=== PATIENT | male | born 1960 | race Caucasian/White ===

== ENCOUNTER 2023-02-19 00:14 | Day surgery (SDC) | payer MEDICARE, SELFPAY ==
[2023-02-06 14:32] VITALS: BMI 24.7
[2023-02-19 11:08] VITALS: BP 148/83; PULSE 79; RESP 20; TEMP 36.7; O2SAT 97
[2023-02-19] MEDS: LACTATED RINGERS 1,000 ML 150 ML IV CONT (11:17)
--- NOTE | 2023-02-19 11:43 | PM.HPGS ---
History of Present Illness History of Present Illness Consent: Risks, benefits, and alternatives have been discussed and questions answered. Patient agrees to proceed with procedure. Chief complaint: neoplasm screening Narrative: Luis Ramos is a 62 year old male Presents for screening colonoscopy. Patient's current weight appetite and bowel movements are normal. Patient denies abdominal pain. He has had no bleeding. Family history is significant his brother was found to have colon polyps. Review of Systems Review of Systems: Review of systems noncontributory. [facility] Family History Family History (Updated 01/09/23 @ 08:54 by Shmuel Gonzalez [facility]) Father Malignant neoplasm of prostate Mother Breast cancer Social History Social History (Updated 01/09/23 @ 08:53 by Shmuel Gonzalez [facility]) Smoking packs per day: 1 Smoking cigarettes per day: 20.0 Years smoked: 40 Smoking pack-years: 40.00 Smoking status: Current every day smoker Tobacco type: cigarettes Alcohol intake: never Substance use: never Substance use type: does not use Living arrangements: with family Spiritual care concerns: No Meds Home Medications and Allergies Home Medications Medication Instructions Recorded Confirmed Type sodium,potassium,mag sulfates 17.5 See Rx Instructions PO .COMPLEX 02/04/23 Rx gram-3.13 gram-1.6 gram oral soln #354 mL (Suprep Bowel Prep Kit) fluorouracil 5 % topical cream 1 applic topical DAILY 02/06/23 02/06/23 History Allergies Allergy/AdvReac Type Severity Reaction Status Date / Time Penicillins Allergy Unknown Verified 02/19/23 11:07 Vital Signs Vital Signs - 24 hr 02/19/23 11:08 Temperature 98.1 F Pulse Rate 79 Respiratory Rate 20 Blood Pressure 148/83 H Pulse Oximetry 97 Oxygen Delivery Room Air Exam Narrative: Physical exam reveals patient to be alert. Vital signs stable. HEENT exam is unremarkable. Patient is anicteric. Lungs are clear to auscultation and percussion. Heart is without murmur or extra sounds. Abdomen bowel sounds present soft nontender with no organomegaly. Digital external rectal exam normal. Assessment and Plan Assessment and plan (1) Encounter for screening colonoscopy: Code(s): Z12.11 - Encounter for screening for malignant neoplasm of colon Status: Acute Assessment and Plan: Patient presents today for screening colonoscopy. Family history significant his brother has had colon polyps. Further recommendations may be given after endoscopy.
--- NOTE | 2023-02-19 12:27 | P.PNAN_ITS ---
Anes - Initial Pre Proc Eval Procedure: Operation Date: 02/19/23 12:30 Proposed Procedures p Screening Colonoscopy - Mk Grajeda MD Date/Time: 02/19/23 12:27 Surgeon: Mk Grajeda MD Pre Op Diagnosis: neoplasm screening Patient Data Age: 62 Gender: M Height: 1.85 m Weight: 83.3 kg Last Vital Signs Temp 98.1 F 02/19/23 11:08 Pulse 79 02/19/23 11:08 Resp 20 02/19/23 11:08 BP 148/83 H 02/19/23 11:08 Pulse Ox 97 02/19/23 11:08 O2 Del Method Room Air 02/19/23 11:08 Allergies Allergy/AdvReac Type Severity Reaction Status Date / Time Penicillins Allergy Unknown Verified 02/19/23 11:07 Home Medications Medication Instructions Recorded Confirmed Type sodium,potassium,mag sulfates 17.5 See Rx Instructions PO .COMPLEX 02/04/23 Rx gram-3.13 gram-1.6 gram oral soln #354 mL (Suprep Bowel Prep Kit) fluorouracil 5 % topical cream 1 applic topical DAILY 02/06/23 02/06/23 History Patient hx anesthesia problems: none Family hx anesthesia problems: none Results Review: All pre-operative results and documents have been reviewed as part of the pre- operative evaluation. [facility] Family History Family History (Updated 01/09/23 @ 08:54 by Shmuel Gonzalez CMA) Father Malignant neoplasm of prostate Mother Breast cancer Social History Social History (Updated 01/09/23 @ 08:53 by Shmuel Gonzalez CMA) Smoking packs per day: 1 Smoking cigarettes per day: 20.0 Years smoked: 40 Smoking pack-years: 40.00 Smoking status: Current every day smoker Tobacco type: cigarettes Alcohol intake: never Substance use: never Substance use type: does not use Living arrangements: with family Spiritual care concerns: No Anes - Eval Final PreProcedure Day of Procedure 02/19/23 12:27 Patient weight: normal Heart: regular rate and rhythm Lungs: clear to auscultation Airway: Mallampati scale class II Neurological: alert and oriented Last oral intake: >/= 8 hours ASA classification: II Emergent: no Anesthetic plan: proceed Anesthesia type and monitoring: general GIVS and standard monitoring Results Review: All pre-operative results and documents have been reviewed as part of the pre- operative evaluation. Informed Consent: The patient's anesthetic plan and its attendant risks and benefits were discussed with the patient/family/POA. Questions were solicited and answers provided to the satisfaction of the patient/family/POA.
[2023-02-19 12:50] VITALS: BP 127/85; PULSE 68; RESP 21; O2SAT 97
[2023-02-19 12:58] VITALS: BP 124/80; PULSE 71; RESP 21; O2SAT 100
[2023-02-19 13:08] VITALS: BP 116/83; PULSE 66; RESP 22; O2SAT 100
== END 2023-02-19 13:15 | disposition home or self-care (01) ==
PROVIDERS: PCP Family Medicine Adolescent Medicine; Visit Provider Internal Medicine Gastroenterology
PROC: 0DJD8ZZ Inspection of Lower Intestinal Tract, Via Natural or Artificial Opening Endoscopic (ICD-10-PCS; CPT 45378; principal; 2023-02-19 12:30)
DX: Z12.11 Encounter for screening for malignant neoplasm of colon (principal); K57.30 Diverticulosis of large intestine without perforation or abscess without bleeding; Z83.71 Family history of colonic polyps; F17.210 Nicotine dependence, cigarettes, uncomplicated
CPT/HCPCS: G0105; 87081; J2704; J7120

== ENCOUNTER 2024-07-10 09:22 | Outpatient (CLI) | payer MEDICARE, SELFPAY ==
--- NOTE | ~2024-07-10 | XR_ITS ---
XR shoulder LT min 2V Ordering provider: Darron Kilpatrick MD History: . Pain in left shoulder . Comparison: None. FINDINGS: BONES: No acute fracture or dislocation. JOINT SPACES: The acromioclavicular joint is normal. The glenohumeral joint is normal. SOFT TISSUES: Normal. IMPRESSION: No acute osseous abnormality left shoulder. Reviewed, dictated and finalized at location A.
== END 2024-07-10 09:23 | disposition home or self-care (01) ==
PROVIDERS: PCP Family Medicine Adolescent Medicine; Visit Provider Family Medicine Adolescent Medicine
DX: M25.512 Pain in left shoulder (principal)
CPT/HCPCS: 73030

== ENCOUNTER 2024-07-13 13:49 | Outpatient (CLI) | payer MEDICARE, SELFPAY ==
--- NOTE | ~2024-07-13 | CT_ITS ---
EXAMINATION:CT lung screening DATE: 07/13/2024 14:01 INDICATION: Personal history of nicotine dependence. Current smoker with 50 pack year history. TECHNIQUE: Computed tomography (CT) of the chest was performed without intravenous contrast. Automate d exposure control and iterative reconstruction technique were employed. The dose-length product (DLP ) was 78.07 mGy-cm. COMPARISON: None. FINDINGS: There is mild emphysema. There is mild atelectasis bilaterally. No pleural effusion. The he art size is normal. There are coronary artery calcifications. No pericardial effusion. There is bilat eral gynecomastia. There is mild thoracic spondylosis. There is mild chronic anterior wedging of T11 and T12 vertebral bodies. IMPRESSION: 1. Lung-RADS category 1: Negative. Continue annual screening with noncontrast low-dose chest CT in 12 months. Reviewed, dictated and finalized at location A. IMPRESSION: 1. Lung-RADS category 1: Negative. Continue annual screening with noncontrast l ow-dose chest CT in 12 months.
== END 2024-07-13 13:50 | disposition home or self-care (01) ==
LOC: MICIMG 13:50
PROVIDERS: PCP Family Medicine Adolescent Medicine; Visit Provider Family Medicine Adolescent Medicine
DX: Z12.2 Encounter for screening for malignant neoplasm of respiratory organs (principal); Z87.891 Personal history of nicotine dependence
CPT/HCPCS: 71271

== ENCOUNTER 2024-11-03 11:13 | Outpatient (CLI) | payer MEDICARE, SELFPAY ==
--- NOTE | ~2024-11-03 | XR_ITS ---
XR shoulder LT min 2V Ordering provider: Kayli Jack APRN History: . M25.512 - Pain in left shoulder . Comparison: None. FINDINGS: BONES: No acute fracture or dislocation. JOINT SPACES: The acromioclavicular joint shows mild osteoarthritic changes.. The glenohumeral joint is normal. SOFT TISSUES: Normal. IMPRESSION: No acute osseous abnormality left shoulder. Reviewed, dictated and finalized at location A. ARCH ADMINISTRATOR
== END 2024-11-03 11:14 | disposition home or self-care (01) ==
PROVIDERS: PCP Family Medicine Adolescent Medicine; Visit Provider Nurse Practitioner Family
DX: M25.512 Pain in left shoulder (principal); W19.XXXA Unspecified fall, initial encounter
CPT/HCPCS: 73030

== ENCOUNTER 2024-12-28 14:22 | Outpatient (CLI) | payer MEDICARE, SELFPAY ==
--- NOTE | 2024-12-28 14:30 | ECG_ITS ---
Test Date: 2024-12-28 14:54:39 Measurements Intervals [place] Rate: 76 P: 149 IA: 162 QRS: -22 QRSD: 98 T: 150 QT: 361 QTc: 407 Interpretive Statements ECTOPIC ATRIAL RHYTHM POSSIBLE LEFT ATRIAL ENLARGEMENT [-0.1mV P WAVE IN V1/V2] BORDERLINE LEFT AXIS DEVIATION [QRS AXIS < -20] NONSEPCIFIC ST AND T WAVE ABNORMALITY WARNING: DATA QUALITY MAY AFFECT INTERPRETATION No previous ECG available for comparison Electronically Signed On 12-29-2024 14:29:52 CDT by Klaudia Bradley M.D.
--- OUTSIDE RECORDS SUMMARY | 2024-12-28 16:53 | XMS_ITS | Continuity of Care Document ---
Author Organization [employer] [place] Address [address] [place] [address] [place] [id number] Phone Care Team Providers Care Smoke Room Operator Name Role Phone Charleen Haddad PT Unavailable Unavailabl e Procedures Procedure Date Therapeutic Exercise Therapeutic Activities Neuromuscular Re-Ed Progress Note Therapeutic Exercise Therapeutic Activities Neuromuscular Re-Ed Therapeutic Exercise Therapeutic Activities Neuromuscular Re-Ed Therapeutic Exercise Therapeutic Activities Neuromuscular Re-Ed Therapeutic Exercise Therapeutic Activities Neuromuscular Re-Ed Therapeutic Exercise Therapeutic Activities Neuromuscular Re-Ed Progress Note Therapeutic Exercise Therapeutic Activities Neuromuscular Re-Ed Therapeutic Exercise Therapeutic Activities Neuromuscular Re-Ed Therapeutic Exercise Therapeutic Activities Neuromuscular Re-Ed Therapeutic Exercise Therapeutic Activities Neuromuscular Re-Ed Therapeutic Exercise Therapeutic Activities Neuromuscular Re-Ed Hot or Cold Pack DATA TRANSCRIBER Acute Therapeutic Exercise Therapeutic Activities Neuromuscular Re-Ed PT Re-evaluation Therapeutic Exercise Therapeutic Activities Neuromuscular Re-Ed Therapeutic Exercise Therapeutic Activities Neuromuscular Re-Ed Manual Therapy Therapeutic Exercise Therapeutic Activities Neuromuscular Re-Ed Therapeutic Exercise Therapeutic Activities Neuromuscular Re-Ed Therapeutic Exercise Therapeutic Activities Neuromuscular Re-Ed Manual Therapy Therapeutic Exercise Neuromuscular Re-Ed Manual Therapy Therapeutic Exercise Therapeutic Activities Neuromuscular Re-Ed Manual Therapy Therapeutic Exercise Neuromuscular Re-Ed Manual Therapy Hot or Cold Pack Therapeutic Exercise Therapeutic Activities Neuromuscular Re-Ed Manual Therapy Hot or Cold Pack Electrical Stimulation Therapeutic Exercise Therapeutic Activities Neuromuscular Re-Ed Manual Therapy Hot or Cold Pack Electrical Stimulation Therapeutic Exercise Therapeutic Activities Neuromuscular Re-Ed Manual Therapy Hot or Cold Pack Electrical Stimulation PT Evaluation Moderate Complexity Therapeutic Exercise Neuromuscular Re-Ed Electrical Stimulation Advance Directives Directive Yes / No Effective Date File Name No Information Encounters Encounter Description Practice Location Reason(s) For Visit Diagnoses Date Provider Providers Copied on Encounter [facility] [place] [address], [place], [place], [id number], [place] tel:[phone] [place] Pain in left kneeOther specified disorders of muscleAnesthe eddy of skinUnspecifi ed abnormalities of gait and mobilityMuscl e weakness (generalized) 2201 8 Boo Bernal . Referring Provider: Mk Pimentel, [address], [place], [address]. tel:[phone] [facility] [address], [place], [place], [id number], [place] tel:[phone] [place] Pain in left kneeOther specified disorders of muscleAnesthe eddy of skinUnspecifi ed abnormalities of gait and mobilityMuscl e weakness (generalized) Dec-1 0-201 8 Boo Villaseñor. . Referring Provider: Mk Pimentel, [address], [place], [address]. tel:[phone] [facility], [place], [place], [id number], [place] tel:[phone] [place] Pain in left kneeOther specified disorders of muscleAnesthe eddy of skinUnspecifi ed abnormalities of gait and mobilityMuscl e weakness (generalized) Dec-0 4-201 8 [place]. [address] [facility] [place], [address], [place], [address], [place]. tel:[phone] Referring Provider: Magda English [address], [place], [address]. tel:[phone] [facility], [place], [place], [id number], [place] tel:[phone] [place] Pain in left kneeOther specified disorders of muscleAnesthe eddy of skinUnspecifi ed abnormalities of gait and mobilityMuscl e weakness (generalized) Dec-0 3-201 8 [place] [address]. [address] [facility], [address], [place], [address], [place]. tel:[phone] Referring Provider: Mk Pimentel, [address], [place], [address]. tel:[phone] [facility], [place], [place], [id number], [place] tel:[phone] [place] Pain in left kneeOther specified disorders of muscleAnesthe eddy of skinUnspecifi ed abnormalities of gait and mobilityMuscl e weakness (generalized) 0 8 Mue[place] [address]. [address] [facility], [address], [place], [address], [place]. tel:[phone] Referring Provider: Magda English [address], [place], [address]. tel:[phone] [facility] [address] [place], [place] [address], [place], [place], [id number], [place] tel:[phone] [place] Pain in left kneeOther specified disorders of muscleAnesthe eddy of skinUnspecifi ed abnormalities of gait and mobilityMuscl e weakness (generalized) 8 M[place] [address]. [address] [facility], [address], [place], [address], [place]. tel:[phone] Referring Provider: Magda English [address], [place], [address]. tel:[phone] [facility] [address] [place], [place] [address], [place], [place], [id number], [place] tel:[phone] [place] Pain in left kneeOther specified disorders of muscleAnesthe eddy of skinUnspecifi ed abnormalities of gait and mobilityMuscl e weakness (generalized) 8 M[address] [address]. [address] [facility], [address], [place], [address], [place]. tel:[phone] Referring Provider: Magda English [address], [place], [address]. tel:[phone] [facility] [address] [place], [place] [address], [place], [place], [id number], [place] tel:[phone] [place] Pain in left kneeOther specified disorders of muscleAnesthe eddy of skinUnspecifi ed abnormalities of gait and mobilityMuscl e weakness (generalized) 8 Muehl [address]. [address] [facility], [address], [place], [address], [place]. tel:[phone] Referring Provider: Magda English [address], [place], [address]. tel:[phone] [facility], [place], [place], [address], [place] tel:[phone] [place] Pain in left kneeOther specified disorders of muscleAnesthe eddy of skinUnspecifi ed abnormalities of gait and mobilityMuscl e weakness (generalized) 8 M[place] [address]. [address] [facility], [address], [place], [address], [place]. tel:[phone] Referring Provider: Mk Pimentel, [address], [place], [address]. tel:[phone] [facility], [place], [place], [address], [place] tel:[phone] [place] Pain in left kneeOther specified disorders of muscleAnesthe eddy of skinUnspecifi ed abnormalities of gait and mobilityMuscl e weakness (generalized) 8 M[place] [address]. [address] [facility], [address], [place], [address], [place]. tel:[phone] Referring Provider: Magda English [address], [place], [address]. tel:[phone] [facility], [place], [address], [place] tel:[phone] [place] Pain in left kneeOther specified disorders of muscleAnesthe eddy of skinUnspecifi ed abnormalities of gait and mobilityMuscl e weakness (generalized) 8 Nianthony Diopa. . Referring Provider: Magda English [address], [place], [address]. tel:[phone] [facility], [place], [address], [place] tel:[phone] [place] Pain in left kneeOther specified disorders of muscleAnesthe eddy of skinUnspecifi ed abnormalities of gait and mobilityMuscl e weakness (generalized) 0 8 Muehl [address]. [address] [facility], [address], [place], [address], [place]. tel:[phone] Referring Provider: Magda English [address], [place], [address]. tel:[phone] [facility], [address] [place], [place] [address], [place], [place], [address], [place] tel:[phone] [place] Pain in left kneeOther specified disorders of muscleAnesthe eddy of skinUnspecifi ed abnormalities of gait and mobilityMuscl e weakness (generalized) 5- 8 M[address] [address]. [address] [facility], [address], [place], [address], [place]. tel:[phone] Referring Provider: Magda English [address], [place], [address]. tel:[phone] [facility] [address] [place], [place] [address], [place], [place], [address], [place] tel:[phone] [place] Pain in left kneeOther specified disorders of muscleAnesthe eddy of skinUnspecifi ed abnormalities of gait and mobilityMuscl e weakness (generalized) 0- 8 Latrice Bran. [address] [facility], [address], [place], [address], [place]. tel:[phone] Referring Provider: Magda English [address], [place], [address]. tel:[phone] [facility] [address], [place], [place], [address], [place] tel:[phone] [place] Pain in left kneeOther specified disorders of muscleAnesthe eddy of skinUnspecifi ed abnormalities of gait and mobilityMuscl e weakness (generalized) 8- 8 M[address]hl [address]. [address] [facility], [address], [place], [address], [place]. tel:[phone] Referring Provider: Magda English [address], [place], [address]. tel:[phone] [facility], [place], [place], [address], [place] tel:[phone] [place] Pain in left kneeOther specified disorders of muscleAnesthe eddy of skinUnspecifi ed abnormalities of gait and mobilityMuscl e weakness (generalized) Oct-0 5-201 8 Muehl [address]. [address] [facility], [address], [place], [address], [place]. tel:[phone] Referring Provider: Magda English [address], [place], [address]. tel:[phone] [facility] [address], [place], [place], [address], [place] tel:[phone] [place] Pain in left kneeOther specified disorders of muscleAnesthe eddy of skinUnspecifi ed abnormalities of gait and mobilityMuscl e weakness (generalized) Oct-0 1-201 8 Muehl [address]. [address] [facility], [address], [place], [address], [place]. tel:[phone] Referring Provider: Magda English [address], [place], [address]. tel:[phone] [facility], [place], [place], [address], [place] tel:[phone] [place] Pain in left kneeOther specified disorders of muscleAnesthe eddy of skinUnspecifi ed abnormalities of gait and mobilityMuscl e weakness (generalized) Sep-2 8-201 8 Muehl [address]. [address] [facility], [address], [place], [address], [place]. tel:[phone] Referring Provider: Magda English [address], [place], [address]. tel:[phone] [facility], [place], [place], [address], [place] tel:[phone] [place] Pain in left kneeOther specified disorders of muscleAnesthe eddy of skinUnspecifi ed abnormalities of gait and mobilityMuscl e weakness (generalized) Sep-2 - 8 M[address] [address]. [address] [facility], [address], [place], [address], [place]. tel:[phone] Referring Provider: Magda English [address], [place], [address]. tel:[phone] [address], [place], [place], [address], [place] tel:[phone] [place] Pain in left kneeOther specified disorders of muscleAnesthe eddy of skinUnspecifi ed abnormalities of gait and mobilityMuscl e weakness (generalized) Sep-2 - 8 M[place] [address]. [address] [facility], [address], [place], [place], [facility], [place]. tel:[phone] Referring Provider: Magda English [address], [place], [address]. tel:[phone] [facility] [address] [place], [place] [address], [place], [place], [address], [place] tel:[phone] [place] Pain in left kneeOther specified disorders of muscleAnesthe eddy of skinUnspecifi ed abnormalities of gait and mobilityMuscl e weakness (generalized) Sep-1 - 8 Muehl [address]. [address] [facility], [address], [place], [address], [place]. tel:[phone] Referring Provider: Magda English [address], [place], [address]. tel:[phone] [address], [place], [place], [address], [place] tel:[phone] [place] Pain in left kneeOther specified disorders of muscleAnesthe eddy of skinUnspecifi ed abnormalities of gait and mobilityMuscl e weakness (generalized) Sep-1 - 8 M[place]hl [address]. [address] [facility], [address], [place], [address], [place]. tel:[phone] Referring Provider: Mk Pimentel, [address], [place], [address]. tel:[phone] [address], [place], [place], [address], tel:[phone] [place] Pain in left kneeOther specified disorders of muscleAnesthe eddy of skinUnspecifi ed abnormalities of gait and mobilityMuscl e weakness (generalized) Sep-1 2-201 8 M[address] [address]. [address] [facility], [address], [place], [place], [facility], [place]. tel:[phone] Referring Provider: Mk Pimentel, [address], [place], [address]. tel:[phone], [place], [place], [address], tel:[phone] [place] Pain in left kneeOther specified disorders of muscleAnesthe eddy of skinSan Juan Regional Medical Centeri ed abnormalities of gait and mobilityMuscl e weakness (generalized) Sep-0 7-201 8 [place] [address] [address] [facility], [address], [place], [place], [facility], [place]. tel:[phone] Referring Provider: Magda English [address], [place], [address]. tel:[phone] Family History Family Member Type Diagnosis Age At Onset No Information Payers Payer name Insurance type Covered libertarian ID Authoriza tieunice(s) [employer] EPO WC SP [id number] Social History Type Description Quantity Date Captured Comments Sex Male Smoking Status No Information Chief Complaint And Reason For Visit No Information Reason For Referral Reason For Referral No Information History Of Present Illness Encounter Date Complaint History Of Prese nt Illness No Information Functional Status Date Functional Assessmen t No Information Instructions Date Instruction Additional Infor mation No Information Assessments Type Assessment Date No Information Patient Care Teams Name Effective Dates (start - stop) Status Members No Information
--- OUTSIDE RECORDS SUMMARY | 2024-12-28 16:53 | XMS_ITS | Patient Health Summary ---
Author Organization [facility] Address [address] [place] [address] Care Team Providers Care Weapons Electrical Engineering Officer Name Role Phone Darron Kilpatrick MD Primary Care Provider + Note from [facility],non-owned Affiliates and Associated Physician Practices is amultiple site organization consisting of ambulatory clinics and hospital sitesin [place], [place], [place] and [place]. This disclosure is being madepursuant to the Care Everywhere program and may not contain all information available regarding this patient. Last updated 18.[facility] Social History Tobacco Use Types Packs/Day Years Used Date Smoking Tobacco: Never Assessed Sex and Gender Information Value Date Recorded Sex Assigned at Not on file Gender Identity Not on file Sexual Orientation Not on file Procedures * DERMATOPATHOLOGY(Performed 12/06/2021) Results * DERMATOPATHOLOGY (12/06/2021 12:00 AM COAL AND ASH SUPERVISOR) Case Report Dermatopathology Report Case: [id number] Authorizing Provider: Clay Kim MD Collected: 12/06/2021 12:00 AM Ordering Location: [facility] Received: 12/07/2021 03:03 PM Pathologist: Tessy Ramirez MD Specimens: A) - Skin, right nasal bulb B) - Skin, left medial latter day C) - Skin, left lateral latter day 5:05 PM [employer] SUPERVISOR DERMATOPATHOLOGY LABORATORY Final Diagnosis Specimen A. SKIN, right nasal bulb: BASAL CELL CARCINOMA, INFILTRATIVE PATTERN, ERODED (C44.311) Specimen B. 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 SKIN, left lateral latter day: PIGMENTED SEBORRHEIC KERATOSIS (L82.1) (see microscopic description) 2 5:05 PM [facility] DERMATOPATHOLOGY LABORATORY Clinical History A: R/O BCC. B: R/O ISK vs other. C: R/O SK vs other. 2 5:05 PM [facility] DERMATOPATHOLOGY LABORATORY Gross Description Specimen A: Received is one formalin filled container labeled with the patient's name and designated right nasal bulb. The specimen consists of a shave biopsy measuring [id number]. Jar 0. Specimen B: Received is one formalin filled container labeled with the patient's name and designated left medial latter day. The specimen consists of a shave biopsy measuring [id number]. Jar 0. Specimen C: Received is one formalin filled container labeled with the patient's name and designated left lateral latter day. The specimen consists of a shave biopsy measuring [id number]. Jar 0. 2 5:05 PM [facility] DERMATOPATHOLOGY LABORATORY Microscopic Description Specimen A. SKIN, right nasal bulb: Within the dermis there are nodular aggregates of basaloid cells associated with fibromyxoid stroma and epithelial-stromal clefts. At the advancing margin of the neoplasm, there are smaller angulated nests that infiltrate the dermis. The epidermis is eroded. Specimen B. SKIN, left medial latter day: Sections reveal parakeratosis, acanthosis and keratinocyte dysmaturation which is most prominent in the lower epidermis but focally extends through the entire epidermis. Additional deeper sections were obtained and reviewed. Specimen C. SKIN, left lateral latter day: Sections show an acanthotic lesion composed of relatively uniform keratinocytes. There is hyperkeratosis and pseudo horn cysts. Pigment is present in the keratinocytes composing this tumor. Additional deeper sections were obtained and reviewed. Ki-67 immunohistochemical stain reveals a normal proliferative index in the epidermis. 2 5:05 PM [facility] DERMATOPATHOLOGY LABORATORY Disclaimer An external and internal positive and negative controls are appropriate for the histochemical, immunohistochemical and immunofluorescence stain(s) in this case (if any), except where stated explicitly. The performance characteristics of the stain(s) cited in this report were developed and its performance characteristic determined by the Dermatopathology Laboratory at [facility], directed by Dr. Josephine Brito. These tests need not be, and therefore are not, approved by the [place] Food and Drug Administration. The tests are used for clinical purposes. Billing Codes Specimen Charges Stain Charges 08361 03059 17065 1 1 1 66438 1 2 5:05 PM COAL AND ASH SUPERVISOR DERMATOPATHOLOGY LABORATORY Embedded Images 2 5:05 PM [employer] SUPERVISOR DERMATOPATHOLOGY LABORATORY Pathology/Cytology TISSUE SPECIMEN FROM SKIN / Unknown 12/06/2021 12/07/2021 3:03 PM [employer] SUPERVISOR Miscellaneous samples (specimen) TISSUE SPECIMEN FROM SKIN / Unknown 12/06/2021 12/07/2021 3:03 PM [employer] AND [employer]SH SUPERVISOR Miscellaneous samples (specimen) TISSUE SPECIMEN FROM SKIN / Unknown 12/06/2021 12/07/2021 3:03 PM COAL AND ASH SUPERVISOR Clay Kim MD LAB - PATHOLOGY/CYTO LOGY ORDERABLES DERMATOPATHOLOGY LABORATORY [facility] - Department of Dermatology [facility] Specialized Medicine [address] [place] [address], [address] [phone] Care Teams Weapons Electrical Engineering Officer Relationship Specialty Start Date End Date Darron Kilpatrick MD [address] [place] [id number] PCP - General 02/10/19
--- OUTSIDE RECORDS SUMMARY | 2024-12-28 16:53 | XMS_ITS | Clinical Summary ---
Author Organization [facility] Address [address] [place] [address] Care Team Providers Care Enrollment Clerk Name Role Phone Darron Kilpatrick MD Primary Care Provider + Source Comments [facility],non-owned Affiliates and Associated Physician Practices is amultiple site organization consisting of ambulatory clinics and hospital sitesin [place], [place], [place] and [place]. This disclosure is being madepursuant to the Care Everywhere program and may not contain all information available regarding this patient. Last updated 18.[facility] Social History Tobacco Use Types Packs/Day Years Used Date Smoking Tobacco: Never Assessed Sex and Gender Information Value Date Recorded Sex Assigned at Not on file Gender Identity Not on file Sexual Orientation Not on file Plan of Treatment Health Maintenance Due Date Last Done Comments COLOGUARD (AGES 45-75) - COL ON CA SCREENING 1962 COLON MONITORING 1962 COLONOSCOPY - COLON CA SCREENING 1962 CT COLONOGRAPHY - COLON CA SCREENING 1962 Colorectal Cancer Screening 1962 FIT - COLON CA SCREENING 1962 FLEX SIG - COLON CA SCREENING 1962 LIPID TESTING 1962 HIV SCREENING 1977 HEPATITIS C SCREENING 06/19/1980 DTAP/TDAP/TD VACCINES (1 - Tdap) 1981 PNEUMOCOCCAL VACCINE 50+ (1 of 1 - PCV) 2012 ZOSTER VACCINE (1 of 2) 2012 COVID-19 VACCINE ( - 2023-2 5 season) 2024 INFLUENZA VACCINE (#1) 2024 DEPRESSION SCREENING 10/21/2024 Respiratory Syncytial Virus (RSV) Vaccine Pt: or over 60 yrs (1 - 1-dose 75+ series) 2037 HEPATITIS B VACCINE Aged Out No longe r eligible based on patient's age to complete this topic HIB VACCINE Aged Out No longer eligi ble based on patient's age to complete this topic HPV VACCINE Aged Out No longer eligi ble based on patient's age to complete this topic MENINGOCOCCAL (Group B) VACCINE Aged Out No longer eligible based on patient's age to complete this topic MENINGOCOCCAL VACCINE Aged Out No mariya ana eligible based on patient's age to complete this topic PNEUMOCOCCAL VACCINE Aged Out No long er eligible based on patient's age to complete this topic Care Teams Enrollment Clerk Relationship Specialty Start Date End Date Darron Kilpatrick MD [address] [place] [id number] PCP - General 02/10/19
--- OUTSIDE RECORDS SUMMARY | 2024-12-28 16:53 | XMS_ITS | Encounter Summary ---
Author Organization [facility] Address [address] [facility] [address] [place] [address] Care Team Providers Care Public Utilities Sales Representative Name Role Phone Darron Kilpatrick MD Primary Care Provider + Encounter Details Date Type Department Care Team (Late st Contact Info) Description 12/07/2021 Lab Requisition [facility] D[facility] Lab [address] [facility], [place] [address] [place] [address] Social History Tobacco Use Types Packs/Day Years Used Date Smoking Tobacco: Never Assessed Sex and Gender Information Value Date Recorded Sex Assigned at Not on file Gender Identity Not on file Sexual Orientation Not on file documented as of this encounter Plan of Treatment Not on file documented as of this encounter Procedures Procedure Name Priority Date/Time Associated Diagnosis Comments DERMATOPATHOLOGY Routine 12/06/2021 12:0 0 AM SPRINKLER REPAIR TECHNICIAN documented in this encounter Results * DERMATOPATHOLOGY (12/06/2021 12:00 AM SPRINKLER REPAIR TECHNICIAN) Case Report Dermatopathology Report Case: [id number] Authorizing Provider: Clay Kim MD Collected: 12/06/2021 12:00 AM Ordering Location: [facility] Received: 12/07/2021 03:03 PM Pathologist: Tessy Ramirez MD Specimens: A) - Skin, right nasal bulb B) - Skin, left medial adventism C) - Skin, left lateral adventism 5:05 PM SPRINKLER REPAIR TECHNICIAN DERMATOPATHOLOGY LABORATORY Final Diagnosis Specimen A. SKIN, right nasal bulb: BASAL CELL CARCINOMA, INFILTRATIVE PATTERN, ERODED (C44.311) Specimen B. 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 SKIN, left lateral adventism: PIGMENTED SEBORRHEIC KERATOSIS (L82.1) (see microscopic description) 2 5:05 PM [facility] DERMATOPATHOLOGY LABORATORY Clinical History A: R/O BCC. B: R/O ISK vs other. C: R/O SK vs other. 2 5:05 PM [facility] DERMATOPATHOLOGY LABORATORY Gross Description Specimen A: Received is one formalin filled container labeled with the patient's name and designated right nasal bulb. The specimen consists of a shave biopsy measuring [id number]. Jar 0. Specimen B: Received is one formalin filled container labeled with the patient's name and designated left medial adventism. The specimen consists of a shave biopsy measuring 5w7m2po. Jar 0. Specimen C: Received is one formalin filled container labeled with the patient's name and designated left lateral adventism. The specimen consists of a shave biopsy measuring [id number]. Jar 0. 2 5:05 PM [facility] DERMATOPATHOLOGY LABORATORY Microscopic Description Specimen A. SKIN, right nasal bulb: Within the dermis there are nodular aggregates of basaloid cells associated with fibromyxoid stroma and epithelial-stromal clefts. At the advancing margin of the neoplasm, there are smaller angulated nests that infiltrate the dermis. The epidermis is eroded. Specimen B. SKIN, left medial adventism: Sections reveal parakeratosis, acanthosis and keratinocyte dysmaturation which is most prominent in the lower epidermis but focally extends through the entire epidermis. Additional deeper sections were obtained and reviewed. Specimen C. SKIN, left lateral adventism: Sections show an acanthotic lesion composed of relatively uniform keratinocytes. There is hyperkeratosis and pseudo horn cysts. Pigment is present in the keratinocytes composing this tumor. Additional deeper sections were obtained and reviewed. Ki-67 immunohistochemical stain reveals a normal proliferative index in the epidermis. 2 5:05 PM [facility] DERMATOPATHOLOGY LABORATORY Disclaimer An external and internal positive and negative controls are appropriate for the histochemical, immunohistochemical and immunofluorescence stain(s) in this case (if any), except where stated explicitly. The performance characteristics of the stain(s) cited in this report were developed and its performance characteristic determined by the Dermatopathology Laboratory at [facility], directed by Dr. Josephine Brito. These tests need not be, and therefore are not, approved by the [place] Food and Drug Administration. The tests are used for clinical purposes. Billing Codes Specimen Charges Stain Charges 24889 97079 68964 1 1 1 78099 1 2 5:05 PM SPRINKLER REPAIR TECHNICIAN DERMATOPATHOLOGY LABORATORY Embedded Images 2 5:05 PM SPRINKLER REPAIR TECHNICIAN DERMATOPATHOLOGY LABORATORY Pathology/Cytology TISSUE SPECIMEN FROM SKIN / Unknown 12/06/2021 12/07/2021 3:03 PM SPRINKLER REPAIR TECHNICIAN Miscellaneous samples (specimen) TISSUE SPECIMEN FROM SKIN / Unknown 12/06/2021 12/07/2021 3:03 PM SPRINKLER REPAIR TECHNICIAN Miscellaneous samples (specimen) TISSUE SPECIMEN FROM SKIN / Unknown 12/06/2021 12/07/2021 3:03 PM SPRINKLER REPAIR TECHNICIAN Clay Kim MD LAB - PATHOLOGY/CYTO LOGY ORDERABLES DERMATOPATHOLOGY LABORATORY [facility] - Department of Dermatology [facility] [address] [place] [address], [address] [phone] documented in this encounter Visit Diagnoses Not on filedocumented in this encounter Care Teams Public Utilities Sales Representative Relationship Specialty Start Date End Date Darron Kilpatrick MD [address] [place] [phone] PCP - General 02/10/19 documented as of this encounter
--- OUTSIDE RECORDS SUMMARY | 2024-12-28 16:53 | XMS_ITS | Referral Summary ---
Author Organization [facility] Address [address] [place] [address] Care Team Providers Care Vice President Of Product Marketing Name Role Phone Darron Kilpatrick MD Primary Care Provider + Source Comments [facility],non-[facility] Affiliates and Associated Physician Practices is amultiple site organization consisting of ambulatory clinics and hospital sitesin [place], [place], [place] and [place]. This disclosure is being madepursuant to the Care Everywhere program and may not contain all information available regarding this patient. Last updated 18.[facility] Social History Tobacco Use Types Packs/Day Years Used Date Smoking Tobacco: Never Assessed Sex and Gender Information Value Date Recorded Sex Assigned at Not on file Gender Identity Not on file Sexual Orientation Not on file Plan of Treatment Not on file Care Teams Vice President Of Product Marketing Relationship Specialty Start Date End Date Darron Kilpatrick MD [address] [place] [phone] PCP - General 02/10/19
== END 2024-12-28 14:23 | disposition home or self-care (01) ==
LOC: ANHSURGERY 14:28
PROVIDERS: PCP Family Medicine Adolescent Medicine; Visit Provider Orthopaedic Surgery
DX: Z01.818 Encounter for other preprocedural examination (principal); R94.31 Abnormal electrocardiogram [ECG] [EKG]; F17.210 Nicotine dependence, cigarettes, uncomplicated
CPT/HCPCS: 93005

== ENCOUNTER 2024-12-29 00:12 | Day surgery (SDC) | payer MEDICARE, SELFPAY ==
[2024-12-28 08:12] VITALS: BMI 26.1
--- NOTE | 2024-12-28 08:23 | PC.NURSE ---
Report to the Outpatient Waiting Room, entrance under the green pavilion located off [facility], at time _1130_ on date _[phone]_. Planned Procedure Time: _130pm_.? Time changes happen often and if your time is changed the preop area will call you the afternoon before. - You and your visitor will be asked to self-screen and do not enter if you have any COVID symptoms. Please call surgeon if you need to reschedule. - A mask is optional within the hospital at this time. Patients may have clear liquids (water, carbonated beverages, clear teas, apple juice) until 3 hours prior to surgery with a maximum of 20 ounces. - No food from midnight until time of surgery and no smoking, or chewing tobacco (or any form of nicotine). No chewing gum, candy or mints. Take only the following medications with a SIP of water on the morning of surgery: ___tramadol if needed____ DO NOT STOP ANY OF YOUR OTHER PRESCRIPTION MEDICATIONS PRIOR TO SURGERY EXCEPT THE FOLLOWING Hold all vitamins and supplements for 3 days per anesthesiologist. Medications to discontinue per physician __Ibuprofen Date to take last dose___Stop now.____ Please no make-up, nail icelandic, hairspray, perfume, deodorant, or body powder the day of surgery.? No jewelry (including any body piercings) or valuables the day of surgery, leave them at home.? Please take a shower or bath the night before, or the morning of, surgery with an antibacterial soap.? Wear comfortable, loose fitting clothing.? - Jewelry must be removed prior to entering the operating room.? Rings and piercings that are not removed may be cut off. - The hospital will not accept responsibility for valuables.? - Please leave all valuables, including medications, at home the day of surgery. If you are going home after surgery, a licensed tractor trailer driver must drive you home.? - NO public transportation without another adult if you receive anesthesia. - We recommend that an adult stay with you for 24 hours following discharge. - We also recommend that you do not drive, make important decision, drink alcoholic beverages, or take any drugs that were not prescribed by your health care provider for at least 24 hours after your discharge time. Follow any additional instructions given to you from your surgeon. Telephone instructions given to __Jimmario__and asked if any additional questions and then verbalized understanding. Patient advised to call surgeon office or pre surgery nurse liaison [phone] if any additional questions.
[2024-12-29] VITALS (9 sets, daily range): BP systolic 122–145; BP diastolic 70–98; PULSE 60–74; RESP 12–18; TEMP 36.2–36.9; O2SAT 93–100
--- OUTSIDE RECORDS SUMMARY | 2024-12-29 00:15 | XMS_ITS | Referral Summary ---
Author Organization [facility] Address [address] [place] [address] Care Team Providers Care Slipman Name Role Phone Darron Kilpatrick MD Primary Care Provider + Source Comments [facility],non-[facility] Affiliates and Associated Physician Practices is amultiple site organization consisting of ambulatory clinics and hospital sitesin [place], [place], [place] and [place]. This disclosure is being madepursuant to the Care Everywhere program and may not contain all information available regarding this patient. Last updated 18.[facility] Social History Tobacco Use Types Packs/Day Years Used Date Smoking Tobacco: Never Assessed Sex and Gender Information Value Date Recorded Sex Assigned at Not on file Gender Identity Not on file Sexual Orientation Not on file Plan of Treatment Not on file Care Teams Slipman Relationship Specialty Start Date End Date Darron Kilpatrick MD [address] [place] [phone] PCP - General 02/10/19
--- OUTSIDE RECORDS SUMMARY | 2024-12-29 00:15 | XMS_ITS | Clinical Summary ---
Author Organization [facility] Address [address] [place] [address] Care Team Providers Care Reed Polisher Name Role Phone Darron Kilpatrick MD Primary Care Provider + Source Comments [facility],non-owned Affiliates and Associated Physician Practices is amultiple site organization consisting of ambulatory clinics and hospital sitesin [place], [place], [place] and [place]. This disclosure is being madepursuant to the Care Everywhere program and may not contain all information available regarding this patient. Last updated 18.[facility] [employer] Social History Tobacco Use Types Packs/Day Years [...] age to complete this topic Care Teams Reed Polisher Relationship Specialty Start Date End Date Darron Kilpatrick MD [address] [place] [phone] PCP - General 02/10/19
--- OUTSIDE RECORDS SUMMARY | 2024-12-29 00:15 | XMS_ITS | Patient Health Summary ---
Author Organization [facility] Address [address] [facility] [place] [address] Care Team Providers Care Bottled Beverage Inspector Name Role Phone Darron Kilpatrick MD Primary Care Provider + Note from [facility],non-owned Affiliates and Associated Physician Practices is amultiple site organization consisting of ambulatory clinics and hospital sitesin [place], [place], [place] and [place]. This disclosure is being madepursuant to the Care Everywhere program and may not contain all information available regarding this patient. Last updated 18.[facility] Social History Tobacco Use Types Packs/Day Years Used Date Smoking Tobacco: Never Assessed Sex and Gender Information Value Date Recorded Sex Assigned at Not on file Gender Identity Not on file Sexual Orientation Not on file Procedures * DERMATOPATHOLOGY(Performed 12/06/2021) Results * DERMATOPATHOLOGY (12/06/2021 12:00 AM SANFORIZER) Case Report Dermatopathology Report Case: [id number] Authorizing Provider: Clay Kim MD Collected: 12/06/2021 12:00 AM Ordering Location: [facility] Derm[facility] Lab Received: 12/07/2021 03:03 PM Pathologist: Tessy Ramirez MD Specimens: A) - Skin, right nasal bulb B) - Skin, left medial samaritan C) - Skin, left lateral samaritan 5:05 PM SANFORIZER DERMATOPATHOLOGY LABORATORY Final Diagnosis Specimen A. SKIN, right nasal bulb: BASAL CELL CARCINOMA, INFILTRATIVE PATTERN, ERODED (C44.311) Specimen B. 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 SKIN, left lateral samaritan: PIGMENTED SEBORRHEIC KERATOSIS (L82.1) (see microscopic description) 2 5:05 PM [facility] DERMATOPATHOLOGY LABORATORY Clinical History A: R/O BCC. B: R/O ISK vs other. C: R/O SK vs other. 2 5:05 PM [facility] DERMATOPATHOLOGY LABORATORY Gross Description Specimen A: Received is one formalin filled container labeled with the patient's name and designated right nasal bulb. The specimen consists of a shave biopsy measuring [id number]. Jar 0. Specimen B: Received is one formalin filled container labeled with the patient's name and designated left medial samaritan. The specimen consists of a shave biopsy measuring 1t1x8ce. Jar 0. Specimen C: Received is one formalin filled container labeled with the patient's name and designated left lateral samaritan. The specimen consists of a shave biopsy measuring 3q0m4nl. Jar 0. 2 5:05 PM [facility] DERMATOPATHOLOGY LABORATORY Microscopic Description Specimen A. SKIN, right nasal bulb: Within the dermis there are nodular aggregates of basaloid cells associated with fibromyxoid stroma and epithelial-stromal clefts. At the advancing margin of the neoplasm, there are smaller angulated nests that infiltrate the dermis. The epidermis is eroded. Specimen B. SKIN, left medial samaritan: Sections reveal parakeratosis, acanthosis and keratinocyte dysmaturation which is most prominent in the lower epidermis but focally extends through the entire epidermis. Additional deeper sections were obtained and reviewed. Specimen C. SKIN, left lateral samaritan: Sections show an acanthotic lesion composed of relatively uniform keratinocytes. There is hyperkeratosis and pseudo horn cysts. Pigment is present in the keratinocytes composing this tumor. Additional deeper sections were obtained and reviewed. Ki-67 immunohistochemical stain reveals a normal proliferative index in the epidermis. 2 5:05 PM [facility] DERMATOPATHOLOGY LABORATORY Disclaimer An external and internal positive and negative controls are appropriate for the histochemical, immunohistochemical and immunofluorescence stain(s) in this case (if any), except where stated explicitly. The performance characteristics of the stain(s) cited in this report were developed and its performance characteristic determined by the Dermatopathology Laboratory at [facility], directed by Dr. Josephine Brito. These tests need not be, and therefore are not, approved by the [place] Food and Drug Administration. The tests are used for clinical purposes. Billing Codes Specimen Charges Stain Charges 85620 54308 85163 1 1 1 64846 1 2 5:05 PM SANFORIZER DERMATOPATHOLOGY LABORATORY Embedded Images 2 5:05 PM SANFORIZER DERMATOPATHOLOGY LABORATORY Pathology/Cytology TISSUE SPECIMEN FROM SKIN / Unknown 12/06/2021 12/07/2021 3:03 PM SANFORIZER Miscellaneous samples (specimen) TISSUE SPECIMEN FROM SKIN / Unknown 12/06/2021 12/07/2021 3:03 PM SANFORIZER Miscellaneous samples (specimen) TISSUE SPECIMEN FROM SKIN / Unknown 12/06/2021 12/07/2021 3:03 PM SANFORIZER Clay Kim MD LAB - PATHOLOGY/CYTO LOGY ORDERABLES DERMATOPATHOLOGY LABORATORY [facility] - Department of Dermatology [facility] [address] [place] [address], [address] [phone] Care Teams Bottled Beverage Inspector Relationship Specialty Start Date End Date Darron Kilpatrick MD [address] [place] [phone] PCP - General 02/10/19
--- OUTSIDE RECORDS SUMMARY | 2024-12-29 00:16 | XMS_ITS | Encounter Summary ---
Author Organization [facility] Address [address] [facility] [place] [address] Care Team Providers Care Diamond Grinder Name Role Phone Darron Kilpatrick MD Primary Care Provider + Encounter Details Date Type Department Care Team (Late st Contact Info) Description 12/07/2021 Lab Requisition [facility] DermPath Lab [address] [place] [address] [place] [address] Social History Tobacco Use Types [...] Comments DERMATOPATHOLOGY Routine 12/06/2021 12:0 0 AM [employer]HEAST REGION[employer] SALES MANAGER documented in this encounter Results * DERMATOPATHOLOGY (12/06/2021 12:00 AM SOUTHEAST REGIONAL SALES MANAGER) Case Report Dermatopathology Report Case: [id number] Authorizing Provider: Clay Kim MD Collected: 12/06/2021 12:00 AM Ordering Location: [facility] DermPath Lab Received: 12/07/2021 03:03 PM Pathologist: Tessy Ramirez MD Specimens: A) - Skin, right nasal bulb B) - Skin, left medial sikhism C) - Skin, left lateral sikhism 5:05 PM [employer]HE[employer]IONAL SALES MANAGER DERMATOPATHOLOGY LABORATORY Final Diagnosis Specimen A. SKIN, right nasal bulb: BASAL CELL CARCINOMA, INFILTRATIVE PATTERN, ERODED (C44.311) Specimen B. 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 SKIN, left lateral sikhism: PIGMENTED SEBORRHEIC KERATOSIS (L82.1) (see microscopic description) 2 5:05 PM [facility] DERMATOPATHOLOGY LABORATORY Clinical History A: R/O BCC. B: R/O ISK vs other. C: R/O SK vs other. 2 5:05 PM [facility] DERMATOPATHOLOGY LABORATORY Gross Description Specimen A: Received is one formalin filled container labeled with the patient's name and designated right nasal bulb. The specimen consists of a shave biopsy measuring [id number]. Jar 0. Specimen B: Received is one formalin filled container labeled with the patient's name and designated left medial sikhism. The specimen consists of a shave biopsy measuring 5h3z0ud. Jar 0. Specimen C: Received is one formalin filled container labeled with the patient's name and designated left lateral sikhism. The specimen consists of a shave biopsy measuring 7o6z9em. Jar 0. 2 5:05 PM [facility] DERMATOPATHOLOGY LABORATORY Microscopic Description Specimen A. SKIN, right nasal bulb: Within the dermis there are nodular aggregates of basaloid cells associated with fibromyxoid stroma and epithelial-stromal clefts. At the advancing margin of the neoplasm, there are smaller angulated nests that infiltrate the dermis. The epidermis is eroded. Specimen B. SKIN, left medial sikhism: Sections reveal parakeratosis, acanthosis and keratinocyte dysmaturation which is most prominent in the lower epidermis but focally extends through the entire epidermis. Additional deeper sections were obtained and reviewed. Specimen C. SKIN, left lateral sikhism: Sections show an acanthotic lesion composed of relatively uniform keratinocytes. There is hyperkeratosis and pseudo horn cysts. Pigment is present in the keratinocytes composing this tumor. Additional deeper sections were obtained and reviewed. Ki-67 immunohistochemical stain reveals a normal proliferative index in the epidermis. 2 5:05 PM [facility] DERMATOPATHOLOGY LABORATORY Disclaimer An external and internal positive and negative controls are appropriate for the histochemical, immunohistochemical and immunofluorescence stain(s) in this case (if any), except where stated explicitly. The performance characteristics of the stain(s) cited in this report were developed and its performance characteristic determined by the Dermatopathology Laboratory at [facility], directed by Dr. Josephine Brito. These tests need not be, and therefore are not, approved by the [place] Food and Drug Administration. The tests are used for clinical purposes. Billing Codes Specimen Charges Stain Charges 75593 27408 90562 1 1 1 06857 1 2 5:05 PM S[employer]HE[employer]AL SALES MANAGER DERMATOPATHOLOGY LABORATORY Embedded Images 2 5:05 PM [employer] SALES MANAGER DERMATOPATHOLOGY LABORATORY Pathology/Cytology TISSUE SPECIMEN FROM SKIN / Unknown 12/06/2021 12/07/2021 3:03 PM S[employer]HEAST REGIONAL SALES MANAGER Miscellaneous samples (specimen) TISSUE SPECIMEN FROM SKIN / Unknown 12/06/2021 12/07/2021 3:03 PM SOUTHEAST REGIONAL SALES MANAGER Miscellaneous samples (specimen) TISSUE SPECIMEN FROM SKIN / Unknown 12/06/2021 12/07/2021 3:03 PM SOUTHEAST REGIONAL SALES MANAGER Clay Kim MD LAB - PATHOLOGY/CYTO LOGY ORDERABLES DERMATOPATHOLOGY LABORATORY [facility] - Department of Dermatology [facility] [address] [place] [address], [address] [phone] documented in this encounter Visit Diagnoses Not on filedocumented in this encounter Care Teams Diamond Grinder Relationship Specialty Start Date End Date Darron Kilpatrick MD [address] [place] [phone] PCP - General 02/10/19 documented as of this encounter
--- OUTSIDE RECORDS SUMMARY | 2024-12-29 00:16 | XMS_ITS | Continuity of Care Document ---
Author Organization [facility] Address [address] [place] [address] [place] [id number] Phone Care Team Providers Care Flask Maker Name Role Phone Charleen Haddad PT Unavailable [...] Activities Neuromuscular Re-Ed Hot or Cold Pack CUSTOMER SERVICE SUPERVISOR Acute Therapeutic Exercise Therapeutic Activities Neuromuscular Re-Ed [...] Date Provider Providers Copied on Encounter [facility] [address], [place], [place], [id number], [place] tel:[phone] [place] Pain in left kneeOther specified disorders of muscleAnesthe eddy of skinUnspecifi ed abnormalities of gait and mobilityMuscl e weakness (generalized) 2201 8 Boo Bernal . Referring Provider: Mk Pimentel, [address], [place], [address]. tel:[phone] [facility] [address], [place], [place], [address], [place] tel:[phone] [place] Pain in left kneeOther specified disorders of muscleAnesthe eddy of skinUnspecifi ed abnormalities of gait and mobilityMuscl e weakness (generalized) Dec-1 0-201 8 Boo Villaseñor. . Referring Provider: Mk Pimentel, [address], [place], [address]. tel:[phone] [facility], [place], [place], [id number], [place] tel:[phone] [place] Pain in left kneeOther specified disorders of muscleAnesthe eddy of skinUnspecifi ed abnormalities of gait and mobilityMuscl e weakness (generalized) Dec-0 4-201 8 Muehl Ed. [address] [facility], [address], [place], [address], [place]. tel:[phone] Referring Provider: Magda English [address], [place], [address]. tel:[phone] [facility], [place], [place], [id number], [place] tel:[phone] [place] Pain in left kneeOther specified disorders of muscleAnesthe eddy of skinUnspecifi ed abnormalities of gait and mobilityMuscl e weakness (generalized) Dec-0 3-201 8 Muehl Ed. [address] [facility], [address], [place], [address], [place]. tel:[phone] Referring Provider: Mk Pimentel, [address], [place], [address]. tel:[phone] [facility], [place], [place], [id number], [place] tel:[phone] [place] Pain in left kneeOther specified disorders of muscleAnesthe eddy of skinUnspecifi ed abnormalities of gait and mobilityMuscl e weakness (generalized) 0 8 Muehl Ed. [address] [facility], [address], [place], [address], [place]. tel:[phone] Referring Provider: Magda English [address], [place], [address]. tel:[phone] [facility] [address] [place], [place] [address], [place], [place], [id number], [place] tel:[phone] [place] Pain in left kneeOther specified disorders of muscleAnesthe eddy of skinUnspecifi ed abnormalities of gait and mobilityMuscl e weakness (generalized) 8 Muehl Ed. [address] [facility], [address], [place], [address], [place]. tel:[phone] Referring Provider: Magda English [address], [place], [address]. tel:[phone] [facility] [address] [place], [place] [address], [place], [place], [id number], [place] tel:[phone] [place] Pain in left kneeOther specified disorders of muscleAnesthe eddy of skinUnspecifi ed abnormalities of gait and mobilityMuscl e weakness (generalized) 8 Muehl Ed. [address] [facility], [address], [place], [address], [place]. tel:[phone] Referring Provider: Magda English [address], [place], [address]. tel:[phone] [facility] [address] [place], [place] [address], [place], [place], [id number], [place] tel:[phone] [place] Pain in left kneeOther specified disorders of muscleAnesthe eddy of skinUnspecifi ed abnormalities of gait and mobilityMuscl e weakness (generalized) 8 Muehl Ed. [address] [facility], [address], [place], [address], [place]. tel:[phone] Referring Provider: Magda English [address], [place], [address]. tel:[phone] [facility], [place], [place], [id number], [place] tel:[phone] [place] Pain in left kneeOther specified disorders of muscleAnesthe eddy of skinUnspecifi ed abnormalities of gait and mobilityMuscl e weakness (generalized) 8 Muehl Ed. [address] [facility], [address], [place], [address], [place]. tel:[phone] Referring Provider: Mk Pimentel, [address], [place], [address]. tel:[phone] [facility] [facility], [place], [place], [id number], [place] tel:[phone] [place] Pain in left kneeOther specified disorders of muscleAnesthe eddy of skinUnspecifi ed abnormalities of gait and mobilityMuscl e weakness (generalized) 8 Muehl Ed. [address] [facility], [address], [place], [address], [place]. tel:[phone] Referring Provider: Magda English [address], [place], [address]. tel:[phone] [facility], [place], [place], [id number], [place] tel:[phone] [place] Pain in left kneeOther specified disorders of muscleAnesthe eddy of skinUnspecifi ed abnormalities of gait and mobilityMuscl e weakness (generalized) 8 Nianthony Diopa. . Referring Provider: Magda English [address], [place], [address]. tel:[phone] [facility], [place], [place], [id number], [place] tel:[phone] [place] Pain in left kneeOther specified disorders of muscleAnesthe eddy of skinUnspecifi ed abnormalities of gait and mobilityMuscl e weakness (generalized) 0 8 Muehl Ed. [address] [facility], [address], [place], [address], [place]. tel:[phone] Referring Provider: Magda English [address], [place], [address]. tel:[phone] [facility], [address] [place], [place] [address], [place], [place], [id number], [place] tel:[phone] [place] Pain in left kneeOther specified disorders of muscleAnesthe eddy of skinUnspecifi ed abnormalities of gait and mobilityMuscl e weakness (generalized) 5- 8 Muehl Ed. [address] [facility], [address], [place], [address], [place]. tel:[phone] Referring Provider: Magda English [address], [place], [address]. tel:[phone] [facility] [address] [place], [place] [address], [place], [place], [id number], [place] tel:[phone] [place] Pain in left kneeOther specified disorders of muscleAnesthe eddy of skinUnspecifi ed abnormalities of gait and mobilityMuscl e weakness (generalized) 0- 8 Latrice Bran. [address] [facility], [address], [place], [address], [place]. tel:[phone] Referring Provider: Magda English [address], [place], [address]. tel:[phone] [facility] [address], [place], [place], [id number], [place] tel:[phone] [place] Pain in left kneeOther specified disorders of muscleAnesthe eddy of skinUnspecifi ed abnormalities of gait and mobilityMuscl e weakness (generalized) 8- 8 Muehl Ed. [address] [facility], [address], [place], [address], [place]. tel:[phone] Referring Provider: Magda English [address], [place], [address]. tel:[phone] [facility], [place], [place], [address], [place] tel:[phone] [place] Pain in left kneeOther specified disorders of muscleAnesthe eddy of skinUnspecifi ed abnormalities of gait and mobilityMuscl e weakness (generalized) Oct-0 5-201 8 Muehl Ed. [address] [facility], [address], [place], [address], [place]. tel:[phone] Referring Provider: Magda English [address], [place], [address]. tel:[phone] [facility] [address], [place], [place], [address], [place] tel:[phone] [place] Pain in left kneeOther specified disorders of muscleAnesthe eddy of skinUnspecifi ed abnormalities of gait and mobilityMuscl e weakness (generalized) Oct-0 1-201 8 Muehl Ed. [address] [facility], [address], [place], [address], [place]. tel:[phone] Referring Provider: Magda English [address], [place], [address]. tel:[phone] [facility], [place], [place], [address], [place] tel:[phone] [place] Pain in left kneeOther specified disorders of muscleAnesthe eddy of skinUnspecifi ed abnormalities of gait and mobilityMuscl e weakness (generalized) Sep-2 8-201 8 Muehl Ed. [address] [facility], [address], [place], [address], [place]. tel:[phone] Referring Provider: Magda English [address], [place], [address]. tel:[phone] [facility], [place], [place], [address], [place] tel:[phone] [place] Pain in left kneeOther specified disorders of muscleAnesthe eddy of skinUnspecifi ed abnormalities of gait and mobilityMuscl e weakness (generalized) Sep-2 - 8 Muehl Ed. [address] [facility], [address], [place], [address], [place]. tel:[phone] Referring Provider: Magda English [address], [place], [address]. tel:[phone] [address], [place], [place], [id number], [place] tel:[phone] [place] Pain in left kneeOther specified disorders of muscleAnesthe eddy of skinUnspecifi ed abnormalities of gait and mobilityMuscl e weakness (generalized) Sep-2 - 8 Muehl Ed. [address] [facility], [address], [place], [place], [facility], [place]. tel:[phone] Referring Provider: Magda English [address], [place], [address]. tel:[phone] [facility] [address] [place], [place] [address], [place], [place], [id number], [place] tel:[phone] [place] Pain in left kneeOther specified disorders of muscleAnesthe eddy of skinUnspecifi ed abnormalities of gait and mobilityMuscl e weakness (generalized) Sep-1 - 8 Muehl Ed. [address] [facility], [address], [place], [address], [place]. tel:[phone] Referring Provider: Magda English [address], [place], [address]. tel:[phone] [address], [place], [place], [address], [place] tel:[phone] [place] Pain in left kneeOther specified disorders of muscleAnesthe eddy of skinUnspecifi ed abnormalities of gait and mobilityMuscl e weakness (generalized) Sep-1 - 8 Muehl Ed. [address] [facility], [address], [place], [address], [place]. tel:[phone] Referring Provider: Mk Pimentel, [address], [place], [address]. tel:[phone] [address], [place], [place], [address], tel:[phone] [place] Pain in left kneeOther specified disorders of muscleAnesthe eddy of skinUnspecifi ed abnormalities of gait and mobilityMuscl e weakness (generalized) Sep-1 2-201 8 Muehl Ed. [address] [facility], [address], [place], [place], [facility], [place]. tel:[phone] Referring Provider: Mk Pimentel, [address], [place], [address]. tel:[phone], [place], [place], [address], tel:[phone] [place] Pain in left kneeOther specified disorders of muscleAnesthe eddy of skinGerald Champion Regional Medical Centeri ed abnormalities of gait and mobilityMuscl e weakness (generalized) Sep-0 7-201 8 Muehl Ed. [address] [facility], [address], [place], [place], [facility], [place]. tel:[phone] Referring Provider: Magda English N [address] [facility] [address], [place], [address]. tel:[phone] Family History Family Member Type Diagnosis Age At Onset No Information Payers Payer name Insurance type Covered republican ID Authoriza tieunice(s) [employer] EPO [place] [id number] Social History Type Description Quantity Date Captured [...]
[2024-12-29] MEDS: EPINEPHrine HCL INJ 1 MG/ML AMPUL IRRIGATION (12:11)
[2024-12-29] MEDS: KETOROLAC 15 MG/ML VIAL (*BKC) IV PUSH (12:57)
[2024-12-29] MEDS: ACETAMINOPHEN 500 MG TABLET 1000 MG PO (12:57)
--- NOTE | 2024-12-29 13:49 | WPDANESEPPF ---
Anes - Initial Pre Proc Eval Procedure: Operation Date: 12/29/24 13:30 Proposed Procedures p Left Shoulder Arthroscopic Rotator Cuff Repair, Biceps Tenodesis Subacromial Decompression - Macario Bush MD Date/Time: 12/29/24 13:49 Surgeon: Macario Bush MD Pre Op Diagnosis: Complete Rot Cuff Tear Patient Data Age: 64 Gender: M Height: 1.8 m Weight: 84.3 kg Last Vital Signs Temp 36.9 C 12/29/24 12:52 Pulse 74 12/29/24 12:52 Resp 14 12/29/24 12:52 BP 143/84 H 12/29/24 12:52 Pulse Ox 93 12/29/24 12:52 O2 Del Method Room Air 12/29/24 12:52 Allergies Allergy/AdvReac Type Severity Reaction Status Date / Time Penicillins Allergy Unknown Verified 12/29/24 12:40 Home Medications ?Medication ?Instructions ?Recorded ?Confirmed ?Type ibuprofen 200 mg tablet (Advil) 400 mg PO Q6H PRN pain 12/28/24 12/28/24 History oxycodone-acetaminophen 5 mg-325 1 - 2 tablet PO Q4-6H PRN pain 7 12/29/24 Rx mg tablet days #30 tabs Patient hx anesthesia problems: none Family hx anesthesia problems: none Results Review: All pre-operative results and documents have been reviewed as part of the pre-operative evaluation. [facility] Past Medical History Medical History Algoneurodystrophy, left shoulder Family History Family History Father Malignant neoplasm of prostate Mother Breast cancer Social History Social History (Updated 12/18/24 @ 08:22 by Stephany Jain CMA) Smoking packs per day: 1 Smoking cigarettes per day: 20.0 Years smoked: 46 Smoking pack-years: 46.00 Smoking status: Current every day smoker Tobacco type: cigarettes Alcohol intake: current Substance use: never Substance use type: does not use Do You Feel Safe in your Home?: Yes Lack of Transportation: No Lack of Food: Never True Current Housing: I Have Housing Concerned About Future Housing: No Difficulty Paying Gas/Electric Bills: No Difficulty Paying for Meds: No Currently Unemployed: No Education: High School Diploma/GED Difficulty w/ Childcare or Family Care: No Living arrangements: with family Spiritual care concerns: No Anes - Eval Final PreProcedure Day of Procedure 12/29/24 13:49 Patient weight: overweight Heart: regular rate and rhythm Lungs: clear to auscultation Airway: Mallampati scale class II Neurological: alert and oriented Last oral intake: >/= 8 hours ASA classification: III Emergent: no Anesthetic plan: proceed Anesthesia type and monitoring: general ETT and standard monitoring Results Review: All pre-operative results and documents have been reviewed as part of the pre-operative evaluation. Informed Consent: The patient's anesthetic plan and its attendant risks and benefits were discussed with the patient/family/POA. Questions were solicited and answers provided to the satisfaction of the patient/family/POA.
--- NOTE | 2024-12-29 13:58 | WPDHPUPDATE1 ---
History and Physical Update Update Date/Time: 12/29/24 13:58 History and Physical has been reviewed, including an updated exam of the patient. There are NO changes in the patient's condition. Risks, benefits, and alternatives have been discussed and questions answered. Patient agrees to proceed with procedure.
[2024-12-29] MEDS: ceFAZolin 2 GM/D5W 50 ML 2 GM/50 ML BAG IVPB (14:12)
[2024-12-29] MEDS: BUPIVACAINE/EPINEPHRINE 0.5% 50 ML VIAL 30 ML INFILTRATE (15:53)
[2024-12-29] MEDS: LACTATED RINGERS 1,000 ML 30 ML IV CONT ×2 (16:31)
[2024-12-29] MEDS: fentaNYL CITRATE INJ (*CRX) 100 MCG/2 ML VIAL 25 MCG IV PUSH ×6 (16:42→17:22)
--- NOTE | 2024-12-29 16:55 | W.PM.PROC2 ---
Procedure Note - Detailed Date of Procedure 12/29/24 Pre-op Diagnosis Left shoulder 1. Biceps tendon rupture 2. Partial-thickness rotator cuff tear 3. Subacromial impingement Post-op Diagnosis Other (1. Complete rotator cuff tear 2. Subacromial impingement 3. Biceps rupture 4. Shoulder joint contracture) Procedure Performed Left shoulder arthroscopic 1. rotator cuff repair 2. subacromial decompression 3. biceps tenodesis 4. anterior capsule release Surgeon Macario Bush MD Textiles Sales Representative Leydi Moya PA-C Anesthesia General Findings The biceps was unstable and severely frayed consistent with the MRI. The subscapularis had only minimal split frayed without actual tearing. Biceps was tenodesed with the arthroscopic loop and tack system. The anterior supraspinatus had high-grade partial tear approximately 85% thickness. It was elected to take down the small tear and repair with a bone tunnel and 3 sutures. Subacromial decompression was performed. The shoulder was quite stiff and the anterior capsule was inflamed and thickened. An anterior capsule release was performed which loosened up the glenohumeral joint nicely. Description of Procedure Preoperative antibiotics were given. The patient was bought brought to the operating room. A general anesthetic was administered. The patient was carefully positioned in the beach chair position. The head and neck were carefully positioned. The non operative extremity was also carefully positioned. The shoulder was prepped and draped in the usual sterile fashion. Examination was performed. The shoulder was moderately stiff with external rotation to 50? and elevation to 130?. Internal rotation was more normal at 70?. Standard posterior and anterior arthroscopic portals were established. Inflow achieved with the arthroscopic pump using saline and epinephrine. The glenohumeral joint was carefully inspected. The articular cartilage was healthy but there was a significant capsulitis. Biceps was very mobile and unstable consistent with the disruption of the biceps marko system. The anterior capsule was contracted and was released with the arthroscopic biter and radiofrequency probe. The loop intact system was used to secure the biceps tendon intra-articularly. After releasing the biceps from the labrum it was secured to the articular margin with a SwiveLock anchor. The supraspinatus had high-grade partial-thickness tearing. It was marked with a spinal needle and PDS suture. Attention was turned to the subacromial space. A complete bursectomy was performed. The area of the marked tendon was very thin approximately 80-90% tearing was estimated. It was elected to take down this portion of the tendon and repair with 3 sutures through a single bone tunnel. The repair was quite nice and anatomic without significant tension. Subacromial decompression was performed with the arthroscopic bur on the undersurface of the acromion. The CA ligament was released. Small spurs at the distal clavicle were gently trimmed. The arthroscopic instruments were removed. The wounds were closed with 3-0 Monocryl subcuticular suture and steri strips. There were no complications. A sling was applied and the patient brought to the recovery room. Physician respiratory equipment assistant, Leydi Moya PA-C, required for surgery; including patient positioning, draping, arthroscopic camera operation, maintaining instrument position, suture retrieval, wound closure, and dressing and sling placement. Implants Arthrex SwiveLock bio composite 4.75 mm anchor. 3 suture tapes in the supraspinatus. Estimated Blood Loss 10 Pathology None sent Complications No immediate complications Condition Stable Disposition PACU [facility] Billing Surgery - Charge Forward: Surgery Billing
[2024-12-29] MEDS: ONDANSETRON INJ 4 MG/2 ML VIAL IV PUSH (17:04)
== END 2024-12-29 18:28 | disposition home or self-care (01) ==
PROVIDERS: PCP Family Medicine Adolescent Medicine; Visit Provider Orthopaedic Surgery
PROC: (CPT 29805; principal; 2024-12-29 13:30)
DX: S46.012A Strain of muscle(s) and tendon(s) of the rotator cuff of left shoulder, initial encounter (principal); S46.212A Strain of muscle, fascia and tendon of other parts of biceps, left arm, initial encounter; M75.42 Impingement syndrome of left shoulder; M24.512 Contracture, left shoulder; W11.XXXA Fall on and from ladder, initial encounter; F17.210 Nicotine dependence, cigarettes, uncomplicated
CPT/HCPCS: 29827; 29828; 29826; A9270; C1713; J0171; J0690; J1100; J1171; J1885; J2003; J2250; J2405; J2704; J3010; J7120

== ENCOUNTER 2025-10-12 02:29 | Emergency (ER) | payer MEDICARE, SELFPAY ==
[2025-10-12] VITALS (12 sets, daily range): BP systolic 131–154; BP diastolic 68–82; PULSE 93–106; RESP 18–27; TEMP 37.6–37.9; O2SAT 92–95
--- NOTE | ~2025-10-12 | XR_ITS ---
Examination: XR chest 2V Clinical History: dyspnea Comparison: None Technique: PA and Lateral Findings: Cardiomediastinal silhouette normal size and configuration. Lungs clear. No acute bony abnormality. IMPRESSION: 1. No acute cardiopulmonary findings. Reviewed, dictated and finalized at location R. ITY SPECIALIST
--- OUTSIDE RECORDS SUMMARY | 2025-10-12 02:31 | XMS_ITS | Clinical Summary ---
Author Organization [facility] Address [address] [place] [address] Care Team Providers Care Sales Development Director Name Role Phone Darron Kilaptrick MD Primary Care Provider + Source Comments [facility],non-owned Affiliates and Associated Physician Practices is amultiple site organization consisting of ambulatory clinics and hospital sitesin [place], [place], [place] and [place]. This disclosure is being madepursuant to the Care Everywhere program and may not contain all information available regarding this patient. Last updated 18.[facility] [employer] Social History Tobacco Use Types Packs/Day Years Used Date Smoking Tobacco: Never Assessed Sex and Gender Information Value Date Recorded Sex Assigned at Not on file Legal Sex Male 10:45 AM CDT Gender Identity Not on file Sexual Orientation [...] 2012 ZOSTER VACCINE (1 of 2) 2012 DEPRESSION SCREENING 10/21/2024 MEDICARE AWV CALENDAR YEAR 2024 COVID-19 VACCINE (1 - 2024-2 6 season) 2025 INFLUENZA VACCINE (#1) 2025 Respiratory Syncytial Virus (RSV) Vaccine Pt: or [...] to complete this topic MENINGOCOCCAL (Group B) VACC INE SHARED DECISION-MAKING Aged Out No longer eligibl e based on patient's age to complete this topic MENINGOCOCCAL GROUPS A/C/Y/W VACCINE Aged Out No longer eligible b ased on patient's age to complete this topic Insurance ANTHEM A MEDICARE ADV HMO & PPO Care Teams Sales Development Director Relationship Specialty Start Date End Date Darron Kilpatrick MD [phone] [address] PCP - General 02/10/19
--- OUTSIDE RECORDS SUMMARY | 2025-10-12 02:31 | XMS_ITS | Encounter Summary ---
Author Organization [facility] Address [address] [place] [address] Care Team Providers Care Lidder Name Role Phone Darron Kilpatrick MD Primary Care Provider + Encounter Details Date Type Department Care Team (Late st Contact Info) Description 12/07/2021 Lab Requisition [facility] DermPath Lab [address] [facility], [place] [address] [place] [address] Social History Tobacco Use Types [...] Comments DERMATOPATHOLOGY Routine 12/06/2021 12:0 0 AM HAND VIOLIN MAKER documented in this encounter Results * DERMATOPATHOLOGY (12/06/2021 12:00 AM HAND VIOLIN MAKER) Case Report Dermatopathology Report Case: [id number] Authorizing Provider: Clay Kim MD Collected: 12/06/2021 12:00 AM Ordering Location: [facility] DermPath Lab Received: 12/07/2021 03:03 PM Pathologist: Tessy Ramirez MD Specimens: A) - Skin, right nasal bulb B) - Skin, left medial presybeterian C) - Skin, left lateral presybeterian 5:05 PM HAND VIOLIN MAKER DERMATOPATHOLOGY LABORATORY Final Diagnosis Specimen A. SKIN, right nasal bulb: BASAL CELL CARCINOMA, INFILTRATIVE PATTERN, ERODED (C44.311) Specimen B. 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 SKIN, left lateral presybeterian: PIGMENTED SEBORRHEIC KERATOSIS (L82.1) (see microscopic description) 2 5:05 PM [facility] DERMATOPATHOLOGY LABORATORY at 1705 HAND VIOLIN MAKER Clinical History A: R/O BCC. B: R/O ISK vs other. C: R/O SK vs other. 2 5:05 PM [facility] DERMATOPATHOLOGY LABORATORY Gross Description Specimen A: Received is one formalin filled container labeled with the patient's name and designated right nasal bulb. The specimen consists of a shave biopsy measuring [id number]. Jar 0. Specimen B: Received is one formalin filled container labeled with the patient's name and designated left medial presybeterian. The specimen consists of a shave biopsy measuring 7g6x8ay. Jar 0. Specimen C: Received is one formalin filled container labeled with the patient's name and designated left lateral presybeterian. The specimen consists of a shave biopsy measuring [id number]. Jar 0. 2 5:05 PM [facility] DERMATOPATHOLOGY LABORATORY Microscopic Description Specimen A. SKIN, right nasal bulb: Within the dermis there are nodular aggregates of basaloid cells associated with fibromyxoid stroma and epithelial-stromal clefts. At the advancing margin of the neoplasm, there are smaller angulated nests that infiltrate the dermis. The epidermis is eroded. Specimen B. SKIN, left medial presybeterian: Sections reveal parakeratosis, acanthosis and keratinocyte dysmaturation which is most prominent in the lower epidermis but focally extends through the entire epidermis. Additional deeper sections were obtained and reviewed. Specimen C. SKIN, left lateral presybeterian: Sections show an acanthotic lesion composed of relatively uniform keratinocytes. There is hyperkeratosis and pseudo horn cysts. Pigment is present in the keratinocytes composing this tumor. Additional deeper sections were obtained and reviewed. Ki-67 immunohistochemical stain reveals a normal proliferative index in the epidermis. 2 5:05 PM [facility] DERMATOPATHOLOGY LABORATORY Disclaimer An external and internal positive and negative controls are appropriate for the histochemical, immunohistochemical and immunofluorescence stain(s) in this case (if any), except where stated explicitly. The performance characteristics of the stain(s) cited in this report were developed and its performance characteristic determined by the Dermatopathology Laboratory at [facility], directed by Dr. Josephine Brito. These tests need not be, and therefore are not, approved by the [place] Food and Drug Administration. The tests are used for clinical purposes. Billing Codes Specimen Charges Stain Charges 56278 36476 14567 1 1 1 54795 1 2 5:05 PM HAND VIOLIN MAKER DERMATOPATHOLOGY LABORATORY Embedded Images 2 5:05 PM HAND VIOLIN MAKER DERMATOPATHOLOGY LABORATORY Pathology/Cytology TISSUE SPECIMEN FROM SKIN / Unknown 12/06/2021 12/07/2021 3:03 PM HAND VIOLIN MAKER Miscellaneous samples (specimen) TISSUE SPECIMEN FROM SKIN / Unknown 12/06/2021 12/07/2021 3:03 PM HAND VIOLIN MAKER Miscellaneous samples (specimen) TISSUE SPECIMEN FROM SKIN / Unknown 12/06/2021 12/07/2021 3:03 PM HAND VIOLIN MAKER Clay Kim MD LAB - PATHOLOGY/CYTOLOGY ORD ERABLES Final Result DERMATOPATHOLOGY LABORATORY [facility] - Department of Dermatology [facility] Medicine [address] [place] [address], [address] [phone] documented in this encounter Visit Diagnoses Not on filedocumented in this encounter Care Teams Lidder Relationship Specialty Start Date End Date Darron Kilpatrick MD [address] [place] [address] PCP - General 02/10/19 documented as of this encounter
--- NOTE | 2025-10-12 02:37 | ECG_ITS ---
Test Date: 2025-10-12 03:09:19 Measurements Intervals [place] Rate: 107 P: 64 TX: 150 QRS: 9 QRSD: 88 T: 65 QT: 315 QTc: 420 Interpretive Statements SINUS TACHYCARDIA NONSPECIFIC T-WAVE ABNORMALITY- ANTEROLAT/HIGH LAT LEADS BASELINE ARTIFACT- I, II, AVR, V1, V4-V6 ABNORMAL ECG Compared to ECG 12/28/2024 14:54:39 Ectopic atrial rhythm no longer present Electronically Signed On 10-12-2025 07:11:32 ALUMINUM CONTAINER TESTER by Aung Del Toro D.O.
[2025-10-12 03:20] LABS: Hematocrit 43.8 % (42.0-52.0); Hemoglobin 14.7 g/dL (14.0-18.0); Immature Granulocyte Percent A 0.3 % (0-0.5); Lymphocytes Absolute Auto 0.38 K/mm3 (0.9-3.2); Mean Corpuscular HGB Conc 33.6 g/dl (32-36); Mean Corpuscular Hemoglobin 30.1 pg (26-34); Mean Corpuscular Volume 89.8 fl (80-100); Nucleated Red Blood Cells Absolute Auto 0.000 K/mm3 (0.0-0.012); Nucleated Red Blood Cells Perc 0.0 % (0.0-0.2); Platelet Count Result 292 k/mm3 (150-375); Red Blood Count 4.88 M/mm3 (4.6-6.20); White Blood Count 9.2 K/mm3 (4.5-10.0)
[2025-10-12] MEDS: IPRATROPIUM 0.5 MG/ALBUTEROL SULFATE 2.5 MG (BASE) AMPUL.NEB 3 ML INHALATION (03:30)
[2025-10-12 03:31] LABS: INR 1.2; Partial Thromboplastin Time 27.7 Seconds (22.3-36.8); Prothrombin Time 14.6 Seconds (11.1-14.7)
[2025-10-12] MEDS: ASPIRIN 81 MG CHEWABLE TABLET 324 MG PO (03:34)
[2025-10-12 03:42] LABS: Anisocytosis 1+; Burr Cells 1+; Schistocytes None Seen
[2025-10-12 03:43] LABS: Alanine Aminotransferase 17 U/L (6-50); Albumin Level 4.3 g/dL (3.5-5.1); Alkaline Phosphatase 85 U/L (38-126); Anion Gap 7 mmol/L (4-12); Aspartate Amino Transferase 24 U/L (17-59); Bilirubin,Total 0.4 mg/dL (0.2-1.3); Blood Urea Nitrogen 18 mg/dL (9-20); Calcium 9.4 mg/dL (8.4-10.2); Carbon Dioxide 24 mmol/L (22-30); Chloride 107 mmol/L (98-107); Estimated CRCL calculation 63 ml/min; Estimated Glomerular Filt Rate > 60; Glucose 120 mg/dL (65-110); Lipase 50 U/L (23-300); Potassium 4.2 mmol/L (3.4-5.0); Sodium 138 mmol/L (137-145); Total Protein 7.6 g/dL (6.3-8.2)
[2025-10-12 03:54] LABS: Influenza A QL RT-PCR Positive (Negative); Influenza B QL RT-PCR Negative (Negative); RSV RNA, RT-PCR Negative (Negative); SARS-CoV-2 RNA PCR Negative (Negative)
[2025-10-12 03:55] LABS: NT Pro B Type Natriuretic Pept 157 pg/mL (19.9-100); Troponin I < 0.012 ng/mL (0.000-0.034)
--- OUTSIDE RECORDS SUMMARY | 2025-10-12 03:57 | XMS_ITS | Clinical Summary ---
Author Organization [facility] Address [address] [place] [address] Care Team Providers Care Game Programmer Name Role Phone Darron Kilpatrick MD Primary Care Provider + Source Comments [facility],non-owned Affiliates and Associated Physician Practices is amultiple site organization consisting of ambulatory clinics and hospital sitesin [place], [place], [place] and [place]. This disclosure is being madepursuant to the Care Everywhere program and may not contain all information available regarding this patient. Last updated [email or web address].[email or web address] [email or web address] Social History Tobacco Use Types Packs/Day Years [...] MEDICARE ADV HMO & PPO Care Teams Game Programmer Relationship Specialty Start Date End Date Darron Kilpatrick MD [address] [address] PCP - General 02/10/19
--- OUTSIDE RECORDS SUMMARY | 2025-10-12 03:57 | XMS_ITS | Encounter Summary ---
Author Organization [facility] Address [address] [place] [address] Care Team Providers Care Press Worker Helper Name Role Phone Darron Kilpatrick MD Primary Care Provider + Encounter Details Date Type Department Care Team (Late st Contact Info) Description 04/29/2025 Lab Requisition [facility] - DermPath Lab [address] [facility] [place] [phone] Andressa Garza MD [address] [facility] [address] [place] [address] Social History Tobacco Use Types Packs/Day Years [...] Priority Date/Time Associated Diagnosis Comments DERMATOPATHOLOGY Routine 04/29/2025 9:20 AM CDT documented in this encounter Results * DERMATOPATHOLOGY (04/29/2025 9:20 AM CDT) Case Report Dermatopathology Report Case: [id number] Authorizing Provider: Andressa Garza MD Collected: 04/29/2025 09:20 AM Ordering Location: [facility] Physician [facility] - Received: 04/30/2025 09:10 AM DermPath Lab Pathologist: Kristi French MD Specimen: Skin, left lateral cheek 4:46 PM CDT DERMATOPATHOLOGY LABORATORY Final Diagnosis Specimen A. SKIN, left lateral cheek: BENIGN VERRUCOUS KERATOSIS (L82.1) (see microscopic description and comment) 4:46 PM T DERMATOPATHOLOGY LABORATORY at 1646 CDT Clinical History SK; R/O SCC 4:46 PM T DERMATOPATHOLOGY LABORATORY Gross Description Specimen A: Received is one formalin filled container labeled with the patient's name and designated left lateral cheek. The specimen consists of a shave biopsy measuring 5x5x1 mm. Jar 0. 4:46 PM CDT DERMATOPATHOLOGY LABORATORY Microscopic Description Specimen A. SKIN, left lateral cheek: Sections show hyperkeratosis, papillomatosis, hypergranulosis, and acanthosis. Mib-1 stain highlights proliferating keratinocytes confined to the basilar epidermis. These histological findings can be seen in a verruca vulgaris or a seborrheic keratosis. Additional deeper sections were obtained and reviewed. COMMENT: Given the superficial nature of the biopsy specimen, a deeper dermal process cannot be excluded. 4:46 PM T DERMATOPATHOLOGY LABORATORY Disclaimer An external and internal positive and negative controls are appropriate for the histochemical, immunohistochemical and immunofluorescence stain(s) in this case (if any), except where stated explicitly. The performance characteristics of the stain(s) cited in this report were developed and its performance characteristic determined by the Dermatopathology Laboratory at [facility], directed by Dr. Josephine Brito. These tests need not be, and therefore are not, approved by the [place] Food and Drug Administration. The tests are used for clinical purposes. Billing Codes Specimen Charges Stain Charges 69590 1 32604 1 4:46 PM CDT DERMATOPATHOLOGY LABORATORY Embedded Images 4:46 PM CDT DERMATOPATHOLOGY LABORATORY Pathology/Cytolo gy TISSUE SPECIMEN FROM SKIN / Unknown 04/29/2025 9:20 AM CDT 04/30/2025 9:10 AM CDT us Andressa Garza MD LAB - PATHOLOGY/CYTOLOGY ORD ERABLES Final Result DERMATOPATHOLOGY LABORATORY [facility] - Department of Dermatology [address], [address] [phone] documented in this encounter Visit Diagnoses Not on filedocumented in this encounter Care Teams Press Worker Helper Relationship Specialty Start Date End Date Darron Kilpatrick MD [address] [address] PCP - General 02/10/19 documented as of this encounter
--- OUTSIDE RECORDS SUMMARY | 2025-10-12 03:57 | XMS_ITS | Encounter Summary ---
Author Organization [facility] Address [address] [place] [address] Care Team Providers Care Healthcare Customer Service Name Role Phone Darron Kilpatrick MD Primary Care Provider + Encounter Details Date Type Department Care Team (Late st Contact Info) Description 12/07/2021 Lab Requisition [facility] DermPath Lab [address] [facility], [place] [address] Clay [place] [address] Social History Tobacco Use Types [...] Comments DERMATOPATHOLOGY Routine 12/06/2021 12:0 0 AM WARBLE SAW OPERATOR documented in this encounter Results * DERMATOPATHOLOGY (12/06/2021 12:00 AM WARBLE SAW OPERATOR) Case Report Dermatopathology Report Case: [id number] Authorizing Provider: Clay Kim MD Collected: 12/06/2021 12:00 AM Ordering Location: [facility] DermPath Lab Received: 12/07/2021 03:03 PM Pathologist: Tessy Ramirez MD Specimens: A) - Skin, right nasal bulb B) - Skin, left medial roman catholic C) - Skin, left lateral roman catholic 5:05 PM WARBLE SAW OPERATOR DERMATOPATHOLOGY LABORATORY Final Diagnosis Specimen A. SKIN, right nasal bulb: BASAL CELL CARCINOMA, INFILTRATIVE PATTERN, ERODED (C44.311) Specimen B. 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 SKIN, left lateral roman catholic: PIGMENTED SEBORRHEIC KERATOSIS (L82.1) (see microscopic description) 2 5:05 PM [facility] DERMATOPATHOLOGY LABORATORY at 1705 WARBLE SAW OPERATOR Clinical History A: R/O BCC. B: R/O ISK vs other. C: R/O SK vs other. 2 5:05 PM [facility] DERMATOPATHOLOGY LABORATORY Gross Description Specimen A: Received is one formalin filled container labeled with the patient's name and designated right nasal bulb. The specimen consists of a shave biopsy measuring [id number]. Jar 0. Specimen B: Received is one formalin filled container labeled with the patient's name and designated left medial roman catholic. The specimen consists of a shave biopsy measuring 8b6v2fu. Jar 0. Specimen C: Received is one formalin filled container labeled with the patient's name and designated left lateral roman catholic. The specimen consists of a shave biopsy measuring 7r4v7yt. Jar 0. 2 5:05 PM [facility] DERMATOPATHOLOGY LABORATORY Microscopic Description Specimen A. SKIN, right nasal bulb: Within the dermis there are nodular aggregates of basaloid cells associated with fibromyxoid stroma and epithelial-stromal clefts. At the advancing margin of the neoplasm, there are smaller angulated nests that infiltrate the dermis. The epidermis is eroded. Specimen B. SKIN, left medial roman catholic: Sections reveal parakeratosis, acanthosis and keratinocyte dysmaturation which is most prominent in the lower epidermis but focally extends through the entire epidermis. Additional deeper sections were obtained and reviewed. Specimen C. SKIN, left lateral roman catholic: Sections show an acanthotic lesion composed of relatively uniform keratinocytes. There is hyperkeratosis and pseudo horn cysts. Pigment is present in the keratinocytes composing this tumor. Additional deeper sections were obtained and reviewed. Ki-67 immunohistochemical stain reveals a normal proliferative index in the epidermis. 2 5:05 PM [facility] DERMATOPATHOLOGY LABORATORY Disclaimer An external and internal positive and negative controls are appropriate for the histochemical, immunohistochemical and immunofluorescence stain(s) in this case (if any), except where stated explicitly. The performance characteristics of the stain(s) cited in this report were developed and its performance characteristic determined by the Dermatopathology Laboratory at [facility], directed by Dr. Jospehine Brito. These tests need not be, and therefore are not, approved by the [place] Food and Drug Administration. The tests are used for clinical purposes. Billing Codes Specimen Charges Stain Charges 64497 52289 12780 1 1 1 35255 1 2 5:05 PM WARBLE SAW OPERATOR DERMATOPATHOLOGY LABORATORY Embedded Images 2 5:05 PM WARBLE SAW OPERATOR DERMATOPATHOLOGY LABORATORY Pathology/Cytology TISSUE SPECIMEN FROM SKIN / Unknown 12/06/2021 12/07/2021 3:03 PM WARBLE SAW OPERATOR Miscellaneous samples (specimen) TISSUE SPECIMEN FROM SKIN / Unknown 12/06/2021 12/07/2021 3:03 PM WARBLE SAW OPERATOR Miscellaneous samples (specimen) TISSUE SPECIMEN FROM SKIN / Unknown 12/06/2021 12/07/2021 3:03 PM WARBLE SAW OPERATOR Clay Kim MD LAB - PATHOLOGY/CYTOLOGY ORD ERABLES Final Result DERMATOPATHOLOGY LABORATORY [facility] - Department of Dermatology [facility] Medicine [address] [place] [address], [address] [phone] documented in this encounter Visit Diagnoses Not on filedocumented in this encounter Care Teams Healthcare Customer Service Relationship Specialty Start Date End Date Darron Kilpatrick MD [address] [place] [address] PCP - General 02/10/19 documented as of this encounter
--- NOTE | 2025-10-12 04:34 | ED_ITS ---
HPI - General Adult General Chief complaint: Shortness of Breath/Dyspnea Stated complaint: I can't breathe when I lay down Time Seen by Provider: 10/12/25 03:15 History of Present Illness HPI narrative: Patient is 62-year-old gentleman presents emergency department chief complaint of dry cough body aches and fever patient reports that he smokes pack a day reports he is concerned that he may have the flu Related Data Home Medications ?Medication ?Instructions ?Recorded ?Confirmed ?Last Taken ?Type ibuprofen 200 mg tablet (Advil) 400 mg PO Q6H PRN pain 12/28/24 03/24/25 12/28/24 History Allergies Allergy/AdvReac Type Severity Reaction Status Date / Time No Known Allergies Allergy Verified 10/12/25 02:37 Review of Systems 2 Review of Systems: A 10 system review of systems was completed on the patient and is negative except for what is stated in the HPI. Nursing and ancillary documentation was reviewed. PMFSH Past Medical History Medical History Deviated nasal septum Left ear impacted cerumen Algoneurodystrophy, left shoulder Surgical History Surgical History History of repair of left rotator cuff (12/2024) Biceps tenodesis, SAD Family History Family History Father Malignant neoplasm of prostate Mother Breast cancer Social History Social History Social History: Caffeine-daily Smoking packs per day: 1 Smoking cigarettes per day: 20.0 Years smoked: 46 Smoking pack-years: 46.00 Smoking status: Current every day smoker Tobacco type: cigarettes Alcohol intake: current Alcohol use details: rarely Substance use: never Substance use type: does not use Lack of Transportation: No Lack of Food: Never True Current Housing: I Have Housing Concerned About Future Housing: No Difficulty Paying Gas/Electric Bills: No Difficulty Paying for Meds: No Currently Unemployed: No Education: High School Diploma/GED Difficulty w/ Childcare or Family Care: No Living arrangements: with family Spiritual care concerns: No Exam 2 Narrative: GENERAL: Well-appearing, well-nourished, and in no acute distress. HEAD: Normocephalic, atraumatic. EYES: PERRLA and EOMI. ENT: Nares clear, no rhinorrhea or epistaxis. Mucous membranes moist. NECK: Supple. CHEST: Clear to auscultation. No respiratory distress. HEART: Regular rate and rhythm. No murmur heard. Normal peripheral pulses. ABDOMEN: Soft, nontender, nondistended, normal active bowel sounds. EXTREMITIES: Normal range of motion. No edema. SKIN: Warm, dry, no rash. NEURO: No focal deficits. Alert and oriented x3. PSYCH: Normal mood and affect. Course Vital Signs Vital signs: Vital Signs Temperature 37.6 C 10/12/25 02:31 Pulse Rate 106 H 10/12/25 02:31 Respiratory Rate 18 10/12/25 02:31 Blood Pressure 133/69 10/12/25 02:31 Pulse Oximetry 95 10/12/25 02:31 Oxygen Delivery Room Air 10/12/25 02:31 Temperature 37.9 C H 10/12/25 02:46 Pulse Rate 97 10/12/25 03:41 Respiratory Rate 20 10/12/25 03:41 Blood Pressure 154/68 H 10/12/25 02:46 Pulse Oximetry 94 10/12/25 03:33 Oxygen Delivery Room Air 10/12/25 03:33 Fraction of Inspired Oxygen 21 10/12/25 03:33 MDM Differential Diagnosis Differential Diagnosis: Diagnosis includes influenza COVID RSV, ACS, CHF The patient was febrile patient was influenza A positive troponin was negative BNP was 157 chest x-ray showed no focal infiltrate Lab Data 10/12/25 03:10 10/12/25 03:10 Labs: Lab Results 10/12/25 Range/Units 03:10 WBC 9.2 (4.5-10.0) K/mm3 RBC 4.88 (4.6-6.20) M/mm3 Hgb 14.7 (14.0-18.0) g/dL Hct 43.8 (42.0-52.0) % MCV 89.8 (80-100) fl MCH 30.1 (26-34) pg MCHC 33.6 (32-36) g/dl RDW 13.2 (11.5-14.5) % Plt Count 292 (150-375) k/mm3 MPV 8.8 (7.4-10.4) fl Immature Gran % (Auto) 0.3 (0-0.5) % Neut % (Auto) 83.6 H (45.5-73.1) % Lymph % (Auto) 4.1 L (18.3-44.2) % Sharkey % (Auto) 10.7 H (2.6-8.5) % Eos % (Auto) 0.3 (0-4.4) % Baso % (Auto) 1.0 (0.2-1.2) % Lymph # (Auto) 0.38 L (0.9-3.2) K/mm3 Sharkey # (Auto) 1.0 H (0.1-0.6) K/mm3 Eos # (Auto) 0.0 (0-0.3) K/mm3 Baso # (Auto) 0.1 (0.0-0.1) K/mm3 Abs Immat Gran (auto) 0.03 (0.00-0.031) K/mm3 Absolute Neuts (auto) 7.7 H (1.3-6.7) K/mm3 Absolute Nucleated RBC 0.000 (0.0-0.012) K/mm3 Band Neutrophils % Not Reportable Nucleated RBC % 0.0 (0.0-0.2) % Platelet Estimate Adequate (Adequate) Anisocytosis 1+ Mikana Cells 1+ Schistocytes None seen PT 14.6 (11.1-14.7) Seconds INR 1.2 APTT 27.7 (22.3-36.8) Seconds Sodium 138 (137-145) mmol/L Potassium 4.2 (3.4-5.0) mmol/L Chloride 107 (98-107) mmol/L Carbon Dioxide 24 (22-30) mmol/L Anion Gap 7 (4-12) mmol/L BUN 18 (9-20) mg/dL Creatinine 1.17 (0.7-1.3) mg/dL Estim Creat Clear Calc 63 ml/min Estimated GFR > 60 (59 - ) Glucose 120 H (65-110) mg/dL Calcium 9.4 (8.4-10.2) mg/dL Total Bilirubin 0.4 (0.2-1.3) mg/dL AST 24 (17-59) U/L ALT 17 (6-50) U/L Alkaline Phosphatase 85 (38-126) U/L Troponin I < 0.012 (0.000-0.034) ng/mL NT-Pro-B Natriuret Pep 157 H (19.9-100) pg/mL Total Protein 7.6 (6.3-8.2) g/dL Albumin 4.3 (3.5-5.1) g/dL Lipase 50 (23-300) U/L Influenza A (RT-PCR) Positive A (Negative) Influenza B (RT-PCR) Negative (Negative) RSV (RT-PCR) Negative (Negative) SARS-CoV-2 RNA (RT-PCR) Negative (Negative) Discharge Plan Discharge Clinical Impression: Influenza A, Upper respiratory infection Patient Disposition: Home Condition: Stable Instructions: Antibiotic Form, Influenza (ED), Upper Respiratory Infection (ED), Viral Syndrome (ED) Patient Language: Yakut Prescriptions: New oseltamivir [Tamiflu] 75 mg capsule 75 mg PO Q12H 5 Days Qty: 10 0RF benzonatate 200 mg capsule 200 mg PO TID PRN (Reason: cough) Qty: 21 0RF albuterol sulfate 90 mcg/actuation HFA aerosol inhaler 2 puff inhalation QID PRN (Reason: shortness of breath or wheezing) Qty: 8.5 0RF No Action ibuprofen [Advil] 200 mg tablet 400 mg PO Q6H PRN (Reason: pain) Follow-up/Referrals: Darron Kilpatrick MD [Primary Care Provider, Family Practice]
[2025-10-12] MEDS: OSELTAMIVIR PHOSPHATE 75 MG CAPSULE PO (05:18)
[2025-10-12] MEDS: ACETAMINOPHEN 500 MG TABLET 1000 MG PO (05:18)
== END 2025-10-12 05:25 | disposition home or self-care (01) ==
PROVIDERS: Emergency Provider Emergency Medicine; PCP Family Medicine Adolescent Medicine
DX: J10.1 Influenza due to other identified influenza virus with other respiratory manifestations (principal); F17.210 Nicotine dependence, cigarettes, uncomplicated; Z20.822 Contact with and (suspected) exposure to COVID-19
CPT/HCPCS: 36415; 71046; 80053; 83690; 83880; 84484; 85025; 85610; 85730; 87637; 93005; 94640; 99284; A9270; J7512